=== PATIENT | female | born 1970 ===

== ENCOUNTER 2021-10-13 05:49 | Day surgery (SDC) | payer OTHER ==
[~2021-10-13 05:49] MED LIST: CYMBALTA60 MG PO; NEURONTIN300 MG PO
== END 2021-10-13 11:30 | disposition home or self-care (01) ==
LOC: CIR.AMB 05:49
PROVIDERS: ATTEND Anesthesiology Pain Medicine
DX: M51.36 Other intervertebral disc degeneration, lumbar region (principal); M46.86 Other specified inflammatory spondylopathies, lumbar region; M47.897 Other spondylosis, lumbosacral region; M51.37 Other intervertebral disc degeneration, lumbosacral region

== ENCOUNTER 2022-04-09 13:03 | Outpatient (CLI) | payer OTHER | END 2022-04-09 13:13 | disposition home or self-care (01) | LOC: RAD 13:03 | DX: M54.42 Lumbago with sciatica, left side (principal); M47.22 Other spondylosis with radiculopathy, cervical region; M47.26 Other spondylosis with radiculopathy, lumbar region; M47.27 Other spondylosis with radiculopathy, lumbosacral region; M41.56 Other secondary scoliosis, lumbar region; G89.4 Chronic pain syndrome; M54.2 Cervicalgia; E66.09 Other obesity due to excess calories; M43.8X9 Other specified deforming dorsopathies, site unspecified ==